=== PATIENT | male | born 1980 | race Caucasian/White ===

== ENCOUNTER 2022-03-14 17:04 | Emergency (ER) | payer MEDICAID, SELFPAY ==
[2022-03-14 17:05] VITALS: BP 147/104; PULSE 106; RESP 16; TEMP 36.8; O2SAT 100; BMI 26.1
--- NOTE | 2022-03-14 17:50 | EDS_ITS ---
HPI History of Present Illness Chief Complaint: Cellulitis Narrative Narrative: 39-year-old male presenting with right arm swelling. He states in the right medial forearm. Has had this for 2 days. He has not any systemic signs or symptoms. He does admit to history of cellulitis but states he does not have a history of MRSA. 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 He states he was just in rehab, but states he left because they put him in the basement with a bunch of pedophiles. He states he is from [place] and is heading back up that way. Patient does admit to having previous success with oral antibiotics for similar symptoms. He also has had surgery for it. [facility] Medical History Drug abuse Medical History no medical history Home Medications cephalexin 500 mg capsule 500 mg PO Q6 #40 caps 03/14/22 [Rx Last Taken Unknown] sulfamethoxazole 800 mg-trimethoprim 160 mg tablet (Bactrim DS) 1 tab PO BID #20 tabs 03/14/22 [Rx Last Taken Unknown] Allergy/AdvReac Type Severity Reaction Status Date / Time Iodinated Contrast Media Allergy Rash Verified 03/14/22 17:07 propoxyphene Allergy Rash Verified 03/14/22 17:07 [From [place]] Social History Smoking Status: Unknown if ever smoked [facility] ED Constitutional Constitutional ED: Denies chills, fever(s) or sweats Eyes Eyes: Denies blurry vision or change in vision ENT ENT ED: Denies ear pain or sore throat Cardiovascular Cardiovascular: Denies chest pain, palpitations or racing heartbeat Respiratory/Chest Respiratory/Chest: Denies cough, dyspnea or sputum Gastrointestinal Gastrointestinal: Denies abdominal pain, constipation, diarrhea, nausea or vomiting Genitourinary Genitourinary ED: Denies dysuria, hematuria or urinary frequency Musculoskeletal Musculoskeletal: Reports other Details: Right forearm swelling ; Denies arthralgias, myalgias or neck pain Integumentary Reports rash; Denies abscess or Abrasions Neurologic Neurologic: Denies headache(s), paresthesias or weakness Psychiatric Psychiatric: Denies anxiety, depression, suicidal ideation or suicidal thoughts Endocrine Endocrinology: Denies polydipsia or polyuria EXAM Physical Exam Const Vital Signs: 03/14/22 17:05 Temperature 98.2 F Temperature Source Temporal Pulse Rate 106 H Respiratory Rate 16 Blood Pressure 147/104 H Blood Pressure Mean 118 Pulse Ox 100 Oxygen Delivery Method Room Air Positive well nourished General Appearance ED: NAD HEENT Reports moist mucous membranes Eyes PERRL and EOMs intact bilaterally Neck no lymphadenopathy Resp normal respiratory effort and clear to auscultation bilaterally Auscultation: Negative for rales, rhonchi or wheezes Cardio regular rhythm Rate: tachycardic GI normal to inspection, nondistended, normoactive bowel sounds Extremity Extremity Narrative: Swelling and edema of the right medial forearm most prominent medially but does extend into the central area of the forearm there is some dependent swelling into the right hand. There is erythema extending over the proximal forearm. Increased warmth and induration. Right hand is neurovascular intact brisk cap refill to all 5 fingers. There is no appreciated fluctuance in the area. There is no crepitance. Patient able to range his right elbow freely. There are some surgical scars on the right bicep which do not appear to be involved. Neuro oriented x3 and CN's II-XII intact bilaterally Psych mental status grossly normal Skin Skin Narrative: As described above MDM MDM MDM Narrative Medical decision making narrative: Patient presenting with right forearm pain. He does appear to have some cellulitis overlying the medial aspect which is extending into the central aspect of the forearm. Its not completely circumferential. He does not have any systemic signs or symptoms. There is no evidence of an abscess or fluctuance. There is no crepitance of the arm. This is been ongoing for 2 days. Patient states he has had antibiotics in the past which have helped. He is also had previous surgery when he has failed outpatient antibiotics. He reports this is up in [place] but cannot remember if it was or [facility]. Patient does not want any blood work or imaging today. He request antibiotics for a skin infection. He states he is heading back to [place] after his rehab. Patient will be provided Bactrim and Keflex. First dose was given in the ER. Return precautions were discussed. Impression: 1. Right forearm cellulitis Lab Data Attestation: I reviewed the patient's lab results. Discharge Plan Triage Chief Complaint: Cellulitis ED Provider: Channing Roberts Dx/Rx/DC Orders Instructions: ED Cellulitis Prescriptions: New sulfamethoxazole-trimethoprim [Bactrim DS] 800-160 mg tablet 1 tab PO BID Qty: 20 0RF cephalexin 500 mg capsule 500 mg PO Q6 Qty: 40 0RF Primary Care Provider: Care Physician,No Primary Referrals: NOT,DEFINED [Non-Staff] - Disposition Disposition: Home, Self Care
[2022-03-14] MEDS: Smz/Tmp Ds Tablet 1 TABLET PO (17:57)
[2022-03-14] MEDS: Cephalexin 250 MG Capsule 500 MG PO (17:57)
== END 2022-03-14 18:02 | disposition home or self-care (01) ==
LOC: ED 17:51
PROVIDERS: Emergency Provider Student in an Organized Health Care Education/Training Program; Visit Provider Student in an Organized Health Care Education/Training Program
DX: L03.113 Cellulitis of right upper limb (principal)
CPT/HCPCS: 99285